=== PATIENT | female | born 1940 | race Caucasian/White ===

== ENCOUNTER → 2017-06-06 | Outpatient (CLI) | payer MEDICARE ==
[~2017-06-06] MED LIST: AEC81 PO; ALBU6.7H PUFF; ASPI-988 PO; DULO30CA2 PO; DULO60CA44 PO; DULO60CA63 PO; ENAL5TAB PO; FAMO20TA8 PO; GABA; GABA-531 PO; HYDR-4068 PO; IPRA4AER PUFF; LEFL10TA15 PO; LEVO75TA10 PO; LOVA40TA2 PO; METH4TAB16 PO; MONT10TA21 PO; MONT10TA24 PO; MULT-1192 PO; OMEG-53 PO; OMEP40CA37 PO; POTA-9 PO; ROFL500T PO; TUMERIC PO; TYLENOL PO; VITAMIN B12 PO; VITAMIN C PO; VITAMIN E PO
== END | disposition home or self-care (01) ==
LOC: RAH 10:14
PROVIDERS: ATTEND Orthopaedic Surgery
DX: M75.121 Complete rotator cuff tear or rupture of right shoulder, not specified as traumatic (principal); M19.011 Primary osteoarthritis, right shoulder
CPT/HCPCS: 73200

== ENCOUNTER → 2017-06-28 | Outpatient (CLI) | payer MEDICARE ==
[2017-06-28 08:53] LABS: BASOPHILS % (AUTO) 2.7 % (0.0-5.0); EOSINOPHILS % (AUTO) 7.1 % (0.0-8.0); HEMATOCRIT 34.9 % (36-48); LYMPHOCYTES % (AUTO) 27.6 % (21.0-51.0); MEAN CORPUSCULAR HEMOGLOBIN 32.4 pg (27.0-33.0); MEAN CORPUSCULAR HGB CONC 34.5 g/dL (32.0-36.0); MEAN CORPUSCULAR VOLUME 93.9 fL (79-99); MONOCYTES % (AUTO) 14.2 % (3.0-13.0); NEUTROPHILS % (AUTO) 48.4 % (40.0-77.0); PLATELET COUNT (AUTO) 248 K/uL (130-400); RED BLOOD CELL COUNT(AUTO) 3.71 MIL/uL (4.00-5.50); RED CELL DISTRIBUTION WIDTH 13.6 % (11.0-15.5); WHITE BLOOD COUNT (AUTO) 4.7 K/uL (4.8-10.8)
[2017-06-28 09:56] LABS: ERYTHROCYTE SEDIMENTATION RATE 44 MM/HR (0-15)
== END | disposition home or self-care (01) ==
LOC: LAB 08:22
PROVIDERS: ATTEND Orthopaedic Surgery
DX: M00.812 Arthritis due to other bacteria, left shoulder (principal); M00.012 Staphylococcal arthritis, left shoulder; E78.2 Mixed hyperlipidemia
CPT/HCPCS: 36415; 85025; 85651; 86141

== ENCOUNTER 2017-07-08 09:37 | Day surgery (SDC) | payer MEDICARE ==
[2017-07-05 15:13] VITALS: BP 119/76
[2017-07-05 15:53] LABS: APPEARANCE,URINE Clear (CLEAR); BILIRUBIN,URINE Negative (NEGATIVE); COLOR,URINE Yellow (YELLOW); GLUCOSE, URINE (UA) Negative (NEGATIVE); KETONES,URINE Negative (NEGATIVE); LEUKOCYTE ESTERASE ,URINE Negative (NEGATIVE); NITRATE,URINE Negative (NEGATIVE); OCCULT BLOOD,URINE Negative (NEGATIVE); PROTEIN,URINE Negative (NEGATIVE); UROBILINOGEN,URINE 0.2 mg/dL (0.2-1.0)
[2017-07-08] VITALS (13 sets, daily range): BP systolic 107–131; BP diastolic 59–81
[~2017-07-08] VITALS: Ht 157.5 cm; Wt 88.9 kg
[~2017-07-08 09:37] MED LIST changes: -AEC81 PO; -ALBU6.7H PUFF; +CEFAZOLIN SODIUM 1 GM VIAL IVP SCH; -DULO30CA2 PO; -DULO60CA44 PO; -GABA; -IPRA4AER PUFF; -MONT10TA21 PO; -OMEG-53 PO; -OMEP40CA37 PO
[2017-07-08] MEDS ORDERED: LACTATED RINGERS 1000ML 1,000 ML IV ONE (10:09)
[2017-07-08] MEDS ORDERED: DEXAMETHASONE SOD PHOSPHATE 10MG/ML 1ML VIAL ONE (11:31)
[2017-07-08] MEDS ORDERED: ONDANSETRON HCL 4 MG/2 ML VIAL ONE ×2 (11:31→13:11)
[2017-07-08] MEDS ORDERED: LIDOCAINE PF 2% 5ML ABBOJECT ONE (11:31)
[2017-07-08] MEDS ORDERED: SUCCINYLCHOLINE 200MG/10ML SYR ONE (11:31)
[2017-07-08] MEDS ORDERED: PROPOFOL 10 MG/ML 20ML VIAL IV ONE (11:32)
[2017-07-08] MEDS ORDERED: MIDAZOLAM HCL 1 MG/ML 2ML VIAL ONE (11:32)
[2017-07-08] MEDS ORDERED: FENTANYL CITRATE PF 50 MCG/1 ML 2ML VIAL ONE ×4 (11:33→14:18)
[2017-07-08] MEDS ORDERED: CALDOLOR 800MG+NS 250ML 250 ML IV ONE (11:34)
[2017-07-08] MEDS ORDERED: ROPIVACAINE 0.5% 5MG/ML 30ML IJ ONE (11:35)
[2017-07-08] MEDS ORDERED: VANCOMYCIN HCL 1 GM VIAL ONE ×2 (12:41→13:41)
[2017-07-08] MEDS ORDERED: MEPERIDINE-PF 50 MG/ML SYG ONE ×2 (13:03→15:25)
[2017-07-08] MEDS ORDERED: EPINEPHRINE 1 MG/ML 30ML VIAL IJ ONE (13:18)
[2017-07-08] MEDS ORDERED: CLINDAMYCIN PHOSPHATE 150 MG/ML 6ML VIAL ONE (13:19)
[2017-07-08] MEDS ORDERED: NEOSTIGMINE 5MG/5ML SYR IV ONE (14:05)
[2017-07-08] MEDS ORDERED: CEFAZOLIN SODIUM 1 GM VIAL ONE (14:56)
== END 2017-07-08 17:30 | disposition home or self-care (01) ==
LOC: DAH 09:37
PROVIDERS: ATTEND Orthopaedic Surgery
DX: M75.102 Unspecified rotator cuff tear or rupture of left shoulder, not specified as traumatic (principal); Z68.41 Body mass index [BMI] 40.0-44.9, adult; Z79.899 Other long term (current) drug therapy; I10 Essential (primary) hypertension; K21.9 Gastro-esophageal reflux disease without esophagitis
CPT/HCPCS: 29827; 81003; 87070 ×2; 87076 ×2; 87205 ×2; 96374; 96375; A4565; A4649 ×2; A4930 ×2; A6204; A6223; J0171; J0330; J0690; J1100; J1741; J2001; J2175 ×2; J2250; J2405 ×2; J2704; J2710; J2795; J3010 ×4; J3370 ×2; J7030; J7120; A4218

== ENCOUNTER → 2017-09-27 | Outpatient (CLI) | payer MEDICARE ==
[~2017-09-27] MED LIST changes: -CEFAZOLIN SODIUM 1 GM VIAL IVP SCH
== END | disposition home or self-care (01) ==
LOC: SHCH 08:21
PROVIDERS: ATTEND Internal Medicine Cardiovascular Disease
DX: R94.31 Abnormal electrocardiogram [ECG] [EKG] (principal)
CPT/HCPCS: 93306

== ENCOUNTER → 2017-10-28 | Outpatient (CLI) | payer MEDICARE | END | disposition home or self-care (01) | LOC: RAH 14:16 | PROVIDERS: ATTEND Orthopaedic Surgery | DX: S42.122A Displaced fracture of acromial process, left shoulder, initial encounter for closed fracture (principal); X58.XXXA Exposure to other specified factors, initial encounter; Y93.89 Activity, other specified; Y92.89 Other specified places as the place of occurrence of the external cause; Y99.8 Other external cause status | CPT/HCPCS: 73200 ==